=== PATIENT | male | born 1980 | race Caucasian/White ===

== ENCOUNTER 2022-01-31 13:30 | Emergency (ER) | payer SELFPAY ==
[2022-01-31] MEDS ORDERED: Sodium Chloride 0.9% 10 ML Syringe FLUSH PRN (14:30)
[2022-01-31] MEDS ORDERED: Sodium Chloride 0.9% 2.5 ML Syringe FLUSH PRN (14:30)
[2022-01-31] MEDS ORDERED: Ondansetron 4 MG/2 ML SDV IVPUSH ONE (14:30)
[2022-01-31] MEDS ORDERED: Sodium Chloride 0.9% 1,000 ML IV ONE (14:30)
[2022-01-31] MEDS ORDERED: Albuterol/Ipratropium 3.0-0.5 MG/3 ML Neb Soln NEB ONE (14:32)
[2022-01-31 15:30] LABS: BLOOD UREA NITROGEN,BUN 12 mg/dL (7.0-18.0); CARBON DIOXIDE,CO2 23.5 mmol/L (21.0-32.0); CHLORIDE,CL 102 mmol/L (98-107); GLUCOSE RANDOM 123 mg/dL (74-106); LIPASE 80 U/L (73-393); POTASSIUM,K 3.9 mmol/L (3.5-5.1); SODIUM,NA 140 mmol/L (136-148)
[2022-01-31] MEDS ORDERED: Acetaminophen 325 MG Tab PO ONE (15:35)
[2022-01-31] MEDS ORDERED: Ketorolac 30 MG/ML SDV IVPUSH ONE (15:35)
[2022-01-31 15:44] LABS: CORONAVIRUS COVID-19 NAA NEGATIVE (NEGATIVE); INFLUENZA A NAA NEGATIVE (NEGATIVE); INFLUENZA B NAA NEGATIVE (NEGATIVE)
== END 2022-01-31 16:30 | disposition home or self-care (01) ==
LOC: MW.ED 13:30
DX: B34.9 Viral infection, unspecified (principal); R11.2 Nausea with vomiting, unspecified; R19.7 Diarrhea, unspecified; E86.0 Dehydration; Z86.16 Personal history of COVID-19; Z20.822 Contact with and (suspected) exposure to COVID-19
CPT/HCPCS: 0240U; 36415; 71045; 80053; 83690; 83880; 85025; 85379; 96374; 96375; 99285; A9270; J1885; J2405; J3490; J7030; 99283; J7620-GY